=== PATIENT | male | born 1940 | race Caucasian/White ===

== ENCOUNTER 2019-01-27 20:36 | Emergency (ER) | payer MEDICARE, SELFPAY ==
[2019-01-27 20:42] VITALS: BP 168/82; PULSE 55; RESP 20; TEMP 36.7; O2SAT 97; BMI 32.0
--- NOTE | 2019-01-27 21:00 | DI.RAD.S_ITS ---
PROCEDURE: XR CHEST 1V INDICATIONS: chest pain TECHNIQUE: One view of the chest was acquired. COMPARISON: None. FINDINGS: Surgical changes and devices: None. Lungs and pleura: Lungs are clear. No pleural effusions or pneumothorax. Mediastinum: Mildly tortuous thoracic aorta is seen. Heart size is mildly enlarged. Bones and chest wall: No suspicious bony lesions. Overlying soft tissues appear unremarkable. IMPRESSION: No acute cardiopulmonary pathology. Dictated by: Son Moran M.D. on 01/27/2019 at 21:45 Approved by: Son Moran M.D. on 01/27/2019 at 21:45
[2019-01-27 21:20] LABS: INR 1.1 (0.9-1.3); Prothrombin Time 12.3 SECONDS (10.1-12.7)
[2019-01-27 21:22] LABS: PTT Partial Thromboplastin Tim 32 SECONDS (26.4-36.2)
[2019-01-27 21:24] LABS: Alanine Aminotransferase 18 IU/L (21-72); Albumin 4.1 g/dL (3.5-5.0); Albumin Globulin Ratio 1.2 (1.0-2.8); Alkaline Phosphatase 72 U/L (38-126); Aspartate Aminotransferase 28 IU/L (17-59); BUN Creatinine Ratio 26.4 (6-22); Bilirubin Total 0.7 mg/dL (0.2-1.3); Blood Urea Nitrogen 29 mg/dL (9-20); Calcium 9.4 mg/dL (8.4-10.2); Carbon Dioxide 26 mmol/L (22-32); Chloride 107 mmol/L (98-107); Creatine Kinase 112 U/L (55-170); Estimated Glomerular Filt Rate > 60.0 mL/min (>60); Globulin 3.5 g/dL (1.7-4.1); Glucose 150 mg/dL (80-110); HEMOLYSIS < 15 (0-50); Lipase 179 U/L (23-300); Potassium 4.6 mmol/L (3.4-5.1); Sodium 142 mmol/L (137-145); Total Protein 7.6 g/dL (6.3-8.2)
[2019-01-27 21:35] LABS: Add Manual Diff / Slide Review NO; Basophils Absolute Auto 100 /uL (0-100); Basophils Percent Auto 0.5 % (0-2); Eosinophils Absolute Auto 100 /uL (0-450); Eosinophils Percent Auto 0.8 % (2-4); Hematocrit 37.1 % (41-53); Hemoglobin 12.4 g/dL (13.5-17.5); Lymphocytes Absolute Auto 2300 /uL (1100-4500); Lymphocytes Percent Auto 13.1 % (25-40); Mean Corpuscular HGB Conc 33.5 % (30-36); Mean Corpuscular Hemoglobin 30.8 PG (26-34); Mean Corpuscular Volume 92.1 fL (80-100); Monocytes Absolute Auto 1200 /uL (0-900); Monocytes Percent Auto 6.9 % (3-14); Neutrophils Absolute Auto 14000 /uL (1500-7000); Neutrophils Percent Auto 78.7 % (50-75); Platelet Count 206 X10^3/uL (150-400); Red Blood Cell Count 4.03 X10^6/uL (4.5-5.9); Red Cell Distribution Width 14.7 % (11.6-14.8); White Blood Cell Count 17.7 X10^3/uL (4.5-11.0)
[2019-01-27 21:36] LABS: Troponin I < 0.012 ng/mL (0.01-0.034)
[2019-01-27 21:40] VITALS: BP 167/67; PULSE 57; RESP 16; O2SAT 97
[2019-01-27 21:40] LABS: CKMB % Relative Index 1.1 % (1.5-5.0); Creatine Kinase MB 1.27 ng/mL (<2.37)
--- NOTE | 2019-01-27 21:43 | PC.NURSE ---
pt reports nausea and vomiting most of the afternoon. states FD showed up at my house but i didnt wanna come and here i am denies nausea, abd pain, CP, SOB at this time. AAOx3. breathing easy and unlabored. no emesis in ED. labs drawn and sent in triage. IV place 20G L hand. resting in bed NAD.
--- NOTE | 2019-01-27 22:08 | ED_ITS ---
HPI - Nausea/Vomiting/Diarrhea General Chief complaint: Nausea/Vomiting/Diarrhea Stated complaint: WANTS TO BE SEEN Time Seen by Provider: 01/27/19 21:50 Source: patient Mode of arrival: wheelchair History of Present Illness HPI Narrative: The patient is a 78-year-old male who presents with vomiting today. He says he suddenly started feeling nauseous he vomited he stood up he vomits some more. He says his legs got weak his whole body got weak you went down to his knees he did not pass out. He had no chest pain or shortness of breath. He has absolutely no abdominal pain. His daughter is here and states that he was dizzy earlier in the week and had a headache. No vomiting at that time. He says that he had a mild headache earlier today as well but has no headache now. He overall feels better. He had no numbness tingling weakness difficulty speaking or other. MD complaint: nausea and vomiting Review of Systems Review of Systems ROS Unobtainable: All systems reviewed & are unremarkable except as noted in HPI and below Constitutional Constitutional: Denies chills, Denies fever(s), Denies lethargy and Denies weakness Eyes Eyes: Denies change in vision, Denies eye discharge, Denies irritation and Denies loss of vision ENT Ears, Nose, Mouth, and Throat: Denies change in voice, Denies neck pain and Denies sore throat Cardiovascular Cardiovascular: Denies chest pain, Denies irregular heart rhythm, Denies lightheadedness, Denies palpitations, Denies dyspnea, Denies dyspnea on exertion and Denies orthopnea Respiratory Respiratory: Denies cough, Denies dyspnea, Denies dyspnea on exertion and Denies wheezing Genitourinary Genitourinary: Denies hematuria, Denies flank pain, Denies urinary incontinence and Denies urinary urgency Musculoskeletal Musculoskeletal: Denies neck pain Integumentary/Breasts Skin/Breast: Denies pruritus, Denies erythema, Denies rash and Denies wounds Neurologic Neurologic: Denies loss of vision and Denies weakness Endocrine Endocrine: Denies palpitations Allergic/Immunologic Allergic/Immunologic: Denies wheezing [facility] Social History Smoking Status: Never smoker Social History Smoking Status: Never smoker Exam Initial Vital Signs Initial Vital Signs: Vital Signs Temperature 98.1 F 01/27/19 20:42 Pulse Rate 55 L 01/27/19 20:42 Respiratory Rate 20 01/27/19 20:42 Blood Pressure 168/82 H 01/27/19 20:42 Pulse Oximetry 97 01/27/19 20:42 GENERAL: Alert elderly male no acute distress HEENT: Head atraumatic,EOMI, pupils reactive face symmetric CARDIOVASCULAR: Regular rate and rhythm without murmurs, rubs or gallops. RESPIRATORY: Breath sounds equal bilaterally, no wheezes rales or rhonchi. ABDOMEN: Soft, nontender. Normoactive bowel sounds all 4 quadrants. No guarding or rebound. EXTREMITIES: Normal range of motion, no clubbing or edema. Neurovascularly intact NEUROLOGICAL: Alert and oriented x4.Normal gait and speech. Cranial nerves II through XII grossly intact. Fret Saw Operator strength equal bilaterally good [id number] bilaterally sensation to soft touch intact. No dysarthria no aphasia SKIN: Warm, dry, no laceration, no petechiae, no rashes or lesions. Scores NIH Stroke Scale Level of Conciousness: Alert, keenly responsive Ask month/age: Answers both questions correctly. Open/close eyes, close hand: Performs both tasks correctly Best gaze horizontal: Normal Visual tompkins: No visual loss Facial palsy: Normal symetrical movement Left arm drift: No drift for full 10 sec Right arm drift: No drift for full 10 sec Left leg drift: No drift for full 10 sec Right leg drift: No drift for full 10 sec Limb ataxia: Absent Sensory on face/arms/legs: Normal, no sensory loss Best language: No aphasia, normal Dysarthria: Normal Extinction or inattention: No abnormality Total NIH Stroke scale score: 0 Course Orders Ordered: ED Orders 01/27/19 21:00 XR chest 1V Stat EKG-12 Lead Stat 01/27/19 21:07 Complete Blood Count AUTO DIFF Stat Comprehensive Metabolic Panel Stat Lipase Stat Partial Thromboplastin Time Stat Prothrombin Time INR Stat Troponin & CK Cardiac Panel Stat 01/27/19 22:14 CT head/brain wo con Stat Vital Signs Vital signs: Vital Signs - 8 hr 01/27/19 20:42 01/27/19 21:40 01/27/19 22:29 Temperature 98.1 F Pulse Rate 55 L 57 L 54 L Respiratory Rate 20 16 16 Blood Pressure 168/82 H Blood Pressure [Right Arm] 167/67 H 170/67 H Pulse Oximetry 97 97 97 01/27/19 23:31 Temperature Pulse Rate 57 L Respiratory Rate 16 Blood Pressure 139/99 H Blood Pressure [Right Arm] Pulse Oximetry 97 MDM - Nausea/Vomiting/Diarrhea Lab Data Attestation: I reviewed the patient's lab results. Result diagrams: 01/27/19 21:07 01/27/19 21:07 Labs: Lab Results 01/27/19 01/27/19 01/27/19 Range/Units 21:07 21:07 21:07 WBC 17.7 H (4.5-11.0) X10^3/uL RBC 4.03 L (4.5-5.9) X10^6/uL Hgb 12.4 L (13.5-17.5) g/dL Hct 37.1 L (41-53) % MCV 92.1 (80-100) fL MCH 30.8 (26-34) PG MCHC 33.5 (30-36) % RDW 14.7 (11.6-14.8) % Plt Count 206 (150-400) X10^3/uL Neut % (Auto) 78.7 H (50-75) % Lymph % (Auto) 13.1 L (25-40) % [place] % (Auto) 6.9 (3-14) % Eos % (Auto) 0.8 L (2-4) % Baso % (Auto) 0.5 (0-2) % Neut # (Auto) 21917 H (7882-0841) /uL Lymph # (Auto) 2300 (2022-5918) /uL [place] # (Auto) 1200 H (0-900) /uL Eos # (Auto) 100 (0-450) /uL Baso # (Auto) 100 (0-100) /uL PT 12.3 (10.1-12.7) SECONDS INR 1.1 (0.9-1.3) APTT 32 (26.4-36.2) SECONDS Sodium 142 (137-145) mmol/L Potassium 4.6 (3.4-5.1) mmol/L Chloride 107 (98-107) mmol/L Carbon Dioxide 26 (22-32) mmol/L BUN 29 H (9-20) mg/dL Creatinine 1.10 (0.66-1.25) mg/dL Estimated GFR > 60.0 (>60) mL/min BUN/Creatinine Ratio 26.4 H (6-22) Glucose 150 H (80-110) mg/dL Calcium 9.4 (8.4-10.2) mg/dL Total Bilirubin 0.7 (0.2-1.3) mg/dL AST 28 (17-59) IU/L ALT 18 L (21-72) IU/L Alkaline Phosphatase 72 (38-126) U/L Total Creatine Kinase 112 (55-170) U/L CK-MB (CK-2) 1.27 (<2.37) ng/mL CK-MB (CK-2) Rel Index 1.1 L (1.5-5.0) % Troponin I < 0.012 (0.01-0.034) ng/mL Total Protein 7.6 (6.3-8.2) g/dL Albumin 4.1 (3.5-5.0) g/dL Globulin 3.5 (1.7-4.1) g/dL Albumin/Globulin Ratio 1.2 (1.0-2.8) Lipase 179 (23-300) U/L Imaging Data Chest x-ray: Radiologist's impression: PROCEDURE: XR CHEST 1V INDICATIONS: chest pain TECHNIQUE: One view of the chest was acquired. COMPARISON: None. FINDINGS: Surgical changes and devices: None. Lungs and pleura: Lungs are clear. No pleural effusions or pneumothorax. Mediastinum: Mildly tortuous thoracic aorta is seen. Heart size is mildly enlarged. Bones and chest wall: No suspicious bony lesions. Overlying soft tissues appear unremarkable. IMPRESSION: No acute cardiopulmonary pathology. Dictated by: Son Moran M.D. on 01/27/2019 at 21:45 Approved by: Son Moran M.D. on 01/27/2019 at 21:45 ECG Data Attestation: I personally reviewed and interpreted this ECG as follows: Prior ECG tracings: not available for review Interpretation: Normal sinus rhythm rate [address] changes T-wave inversion noted in lead 3 only no priors to compare MDM Narrative Medical decision making narrative: Patient now in the emergency department for some time has absolutely no complaints abdomen is completely soft no symptoms. He has no further nausea or vomiting. Because he has had headache earlier this week and dizziness along with headache today and vomiting. Will give head CT but he has no focal deficits. Discharge Plan Departure Patient Disposition: Home Clinical Impression: Vomiting Qualifiers: Vomiting type: unspecified Vomiting Intractability: non-intractable Nausea presence: without nausea Qualified Code(s): R11.11 - Vomiting without nausea Discharge Date/Time: 01/27/19 23:33 Instructions: DI for Vomiting -- Adult Activity Restrictions/Additional Instructions: *You have been diagnosed with vomiting *What to do: Blood work looks good. No sign of dehydration. It is negative. EKG also negative. *Continue to take medications as directed Zofran 4 mg every 8 hours needed for nausea or vomiting *Follow up with your primary care provider in 2-3 days *Return to ER if you should have [or] any new, worsening or concerning symptoms Referrals: Armand Garcia MD [Primary Care Provider] -
--- NOTE | 2019-01-27 22:14 | DI.CT.S_ITS ---
PROCEDURE: CT HEAD/BRAIN WO CON INDICATIONS: dizzy headache nausea TECHNIQUE: Noncontrast 4.5 mm thick angled axial sections acquired from the foramen magnum to the vertex, with coronal and sagittal reformats. For radiation dose reduction, the following was used: automated exposure control, adjustment of mA and/or kV according to patient size. COMPARISON: None. FINDINGS: Image quality: Excellent. CSF spaces: Basal cisterns are patent. No extra-axial fluid collections. Ventricles are normal in size and shape. Brain: No midline shift. No intracranial masses or hemorrhage. Broussard-white matter interface is normal. Skull and face: Calvarium and visualized facial bones are intact, without suspicious lesions. Sinuses: Visualized sinuses and mastoids are clear. IMPRESSION: No acute intracranial abnormality demonstrated. This report is concordant with the overnight preliminary interpretation. Dictated by: Renzo Tai M.D. on 01/28/2019 at 8:15 Approved by: Renzo Tai M.D. on 01/28/2019 at 8:16
[2019-01-27 22:29] VITALS: BP 170/67; PULSE 54; RESP 16; O2SAT 97
[2019-01-27 23:31] VITALS: BP 139/99; PULSE 57; RESP 16; O2SAT 97
== END 2019-01-27 23:33 | disposition home or self-care (01) ==
PROVIDERS: Emergency Provider Emergency Medicine; PCP Family Medicine
DX: R11.11 Vomiting without nausea (principal); R42 Dizziness and giddiness; R51 Headache
CPT/HCPCS: 36415; 70450; 71045; 80053; 82550; 82553; 83690; 84484; 85025; 85610; 85730; 93005; 99283; 99285